=== PATIENT | female | born 1990 | race Two or more races ===

== ENCOUNTER → 2021-05-04 | Outpatient (CLI) | payer OTHER ==
--- NOTE | 2021-05-04 09:54 | PFTRPT ---
Site: [facility], [address] [place], [address] ID: [id number] Name: MARCOS HERNÁNDEZ Visit Date: 05/04/2021 Second ID: [id number] Referring Doctor: Gerardo Castle D.O. Reviewing Doctor: Guzman Hernandez MD [employer]: Damaso GERONIMO RRT Age: 30 : 1990 Sex: Female Race: <Unspecified> Height: 66.00 Inches Weight: 137.00 Lbs BSA: 1.70 Order IDs: [id number] Requested Test(s): <RESP-PFT.PFT B/A> Diagnosis: SOB test meet the ATS standards for acceptability and repeatability. Pt was given four puffs of albuterol for post bronchodilator. Review Status: Not Reviewed Pre-Bronch Post-Bronch Pred Actual %Pred Actual %Chng SPIROMETRY FVC (L) 4.02 4.42 109 4.60 4 FEV1 (L) 3.36 3.43 102 3.80 10 FEV1/FVC (%) 84 78 92 83 6 FEF 25% (L/sec) 5.87 5.55 94 6.52 17 FEF 50% (L/sec) 4.46 3.54 79 4.71 32 FEF 75% (L/sec) 1.87 1.46 77 2.28 56 FEF 25-75% (L/sec) 3.53 3.02 85 4.17 38 FEF Max (L/sec) 7.32 6.50 88 7.85 20 FIVC (L) 4.15 4.44 6 FIF 50% (L/sec) 3.97 5.40 135 5.40 FIF Max (L/sec) 5.40 5.41 MVV (L/min) 112 115 102 Expiratory Time (sec) 5.31 6.59 24 Back Extrap Vol (L) 0.10 0.12 18 Time To FEFmax (sec) 0.090 0.086 -4 LUNG VOLUMES SVC (L) 3.83 4.38 114 IC (L) 2.40 2.99 124 ERV (L) 1.43 1.39 97 TGV (L) 2.95 3.36 113 RV (Pleth) (L) 1.52 1.97 129 TLC (Pleth) (L) 5.35 6.35 118 RV/TLC (Pleth) (%) 27 31 114 DIFFUSION DLCOunc (ml/min/mmHg) 25.60 22.40 87 DL/VA (ml/min/mmHg/L) 4.79 3.99 83 VA (L) 5.35 5.61 104 BHT (sec) 10.08 IVC (L) 4.33 TLC (SB) (L) 5.76 AIRWAYS RESISTANCE Raw (cmH2O/L/s) 1.86 1.05 56 Gaw (L/s/cmH2O) 1.03 0.97 94 sRaw (cmH2O*s) 4.76 3.69 77 sGaw (1/cmH2O*s) 0.20 0.27 137
== END ==
LOC: M CARPUL 09:03
PROVIDERS: ATTEND Surgery
DX: R06.02 Shortness of breath (principal)

== ENCOUNTER → 2021-06-25 | Outpatient (CLI) | payer OTHER ==
[~2021-06-25] MED LIST: METHACHOLINE KIT (J7674) INH ONE
== END ==
LOC: M CARPUL 08:05
PROVIDERS: ATTEND Nurse Practitioner Adult Health
DX: R06.02 Shortness of breath (principal)
CPT/HCPCS: 94070; J7674